=== PATIENT | female | born 1995 | race African-American/Black ===

== ENCOUNTER 2018-04-04 08:20 | Day surgery (SDC) | payer OTHER ==
[2018-04-03 17:41] VITALS: BMI 49.3
[2018-04-04] MEDS ORDERED: ONDANSETRON 4 MG/2 ML VIAL IVPUSH PRN (09:16)
[2018-04-04] MEDS ORDERED: oxyCODONE HCL 5 MG TABLET PO PRN (09:16)
[2018-04-04] MEDS ORDERED: PROMETHAZINE HCL 25 MG/1 ML VIAL IVPB PRN (09:16)
[2018-04-04] MEDS ORDERED: LACTATED RINGERS SOLUTION 1,000 ML IV SCH (09:30)
[2018-04-04] MEDS ORDERED: MIDAZOLAM HCL 2 MG/2 ML SINGLE DOSE VIAL ONE (09:55)
[2018-04-04] MEDS ORDERED: PROPOFOL 20 ML ONE (09:55)
[2018-04-04] MEDS ORDERED: LIDOCAINE HCL/PF 2% SDV 5ML VIAL ONE (10:02)
[2018-04-04] MEDS ORDERED: DEXAMETHASONE SOD PHOSPHATE 4 MG/1 ML VIAL ONE ×2 (10:09)
[2018-04-04] MEDS ORDERED: KETOROLAC TROMETHAMINE 30 MG/1 ML VIAL ONE (10:16)
[2018-04-04] MEDS ORDERED: ACETAMINOPHEN 1000 MG/100 ML VIAL (NON FORMULARY) IVPB ONE (10:32)
[2018-04-04] MEDS ORDERED: LABETALOL HCL 5 MG/1 ML (100MG/20 ML VIAL) IVPUSH ONE (10:33)
[2018-04-04 12:44] VITALS: TEMP 97.8
[2018-04-04 14:49] VITALS: BP 126/73; PULSE 74
--- NOTE | 2018-04-05 08:59 | OP ---
DATE OF OPERATION: 04/04/2018 PREOPERATIVE DIAGNOSIS: Irregular vaginal bleeding, thickened endometrial cavity. POSTOPERATIVE DIAGNOSIS: Irregular vaginal bleeding, thickened endometrial cavity. PROCEDURE: Dilatation and curettage, hysteroscopy. SURGEON: Ramez Wise DO ANESTHESIA: General. INTRAVENOUS FLUID: 200 mL. DISTENSION MEDIA: Input 100 mL, output 50 mL. DISTENSION MEDIA DEFICIT: 50 mL.. ESTIMATED BLOOD LOSS: 25 mL. SPECIMEN: Endometrial lining, curetting, and ECC. COMPLICATIONS: None. FINDINGS: Examination under anesthesia revealed uterus 6-8-week size, anteverted, normal contour, normal adnexa bilateral. Hysteroscopy showed normal uterine cavity. Bilateral tubal ostia appeared to be normal. DESCRIPTION OF PROCEDURE: Patient was taken to the operating room where general anesthesia was administered without difficulty. She was placed in the dorsal lithotomy position, prepped and draped in the usual sterile fashion. A weighted speculum was inserted into the posterior aspect of the vagina. A single-tooth tenaculum was used to grab the anterior lip of the cervix. The uterus was carefully sounded to 6 cm. The cervical os was sequentially dilated to accommodate the hysteroscope using dilators. The hysteroscope was subsequently introduced under direct visualization and distended with normal saline. The aforementioned findings were noted. The hysteroscope was withdrawn. The cervix was further dilated to accommodate sharp curettage. The uterus was curettaged in a clockwise fashion until gritty-like sensation was noted in all aspects of the uterus. This was followed by ECC, and the scrapings were sent to Pathology. The tenaculum was removed from the cervix with excellent hemostasis noted at the puncture site. The patient tolerated the procedure well. The instrument and sponge counts were correct x2. The patient was awakened from anesthesia and taken to the recovery room in stable condition. The patient will go home after recovering from anesthesia and meeting all criteria for discharge. She was given instructions in regards to followup with Dr. Wise in 2 weeks. Ramez Wise DO [id number]
--- NOTE | 2018-04-07 14:57 | PATH ---
Surgical Pathology Report Patient Name: MADY BRUNNER [facility]. Rec. #: [id number] /Age/Gender: 1995 (Age: 22) / F Account: [id number] Location: [facility] SURGICAL Taken: 04/04/2018 Received: 04/04/2018 Reported: 04/07/2018 Physicians: Ramez Wise DO Specimen(s) Received A: ENDOMETRIAL CURETTINGS B: ENDOCERVICAL CURETTINGS Clinical History Irregular vagina bleeding, thickened endometrium rule out hyperplasia Final Diagnosis A. ENDOMETRIAL CURETTINGS, DILATION AND CURETTAGE: FRAGMENTS OF ENDOMETRIAL POLYP. SCANT BENIGN ENDOCERVICAL TISSUE. B. ENDOCERVICAL CURETTINGS, DILATION AND CURETTAGE: FRAGMENTS OF ENDOMETRIAL POLYP AND BENIGN CERVICAL TISSUE. Electronically Signed Gianna Garza M.D. Gross Description A. Received in formalin, labeled "endometrial curettings" are multiple alvarado, irregular portions of soft tissue measuring 1.5 x 1.5 x 0.1 cm. in aggregate. The specimens are submitted in toto in one cassette. B. Received in formalin, labeled "endocervical curettings" are multiple dark brown portions of soft tissue measuring 1.5 x 1.5 x 0.1 cm in aggregate. The specimens are submitted in toto in 1 cassette. NOY/04/04/2018 errol/04/04/2018
== END 2018-04-04 14:51 | disposition home or self-care (01) ==
LOC: JASU-SURG 08:20
PROVIDERS: ATTEND Obstetrics & Gynecology
PROC: 0UDB7ZX Extraction of Endometrium, Via Natural or Artificial Opening, Diagnostic (ICD-10-PCS; principal; 2018-04-04 09:30)
PROC: 0UJD8ZZ Inspection of Uterus and Cervix, Via Natural or Artificial Opening Endoscopic (ICD-10-PCS; 2018-04-04 09:30)
DX: N93.8 Other specified abnormal uterine and vaginal bleeding (principal); N85.00 Endometrial hyperplasia, unspecified
CPT/HCPCS: 84703; 88305-TC; 94760; J0131